=== PATIENT | female | born 1965 | race Caucasian/White ===

== ENCOUNTER 2021-06-28 14:30 | Outpatient (RCR) | payer BC, SELFPAY | END 2021-08-04 11:15 | disposition home or self-care (01) | LOC: ANHDMC 14:30 | PROVIDERS: PCP Physician Assistant; Visit Provider Physician Assistant | DX: E10.65 Type 1 diabetes mellitus with hyperglycemia (principal); Z71.89 Other specified counseling | CPT/HCPCS: 99199; G0108; G0109 ==

== ENCOUNTER 2021-11-03 00:50 | Day surgery (SDC) | payer BC, SELFPAY ==
[2021-10-25 13:50] VITALS: BMI 26.6
--- NOTE | 2021-10-25 14:02 | SUR.PREOP ---
Addendum entered by Kusum Raya RN 10/26/21 10:01: PT WAS INSTRUCTED TO STOP ASPIRIN 7 DAYS PRIOR TO SURGERY PER DR. NICOLE'S ORDERS. Original Note: Report to the Outpatient Waiting Room, entrance under the green pavilion located off [facility], at time 0600 on date __11/03/21 . OR Time: _0730 - You and your visitor will be asked a series of questions to screen for COVID 19 for your protection. - A mask is required within the hospital. Preoperative COVID Testing Requirements: No COVID Test needed if: (proof is required; if not received patient will have Rapid Test prior to entry) - Patient has received COVID Vaccine at least 14 days prior to procedure date or - Patient has positive COVID test result within last 90 days of surgery date. COVID Test needed if above criteria is not met If not COVID vaccinated a COVID test must be conducted within 72 hours of surgery and patient is asked to isolate self from time of testing until procedure. You will go to the [employer] [facility] for your COVID testing. The [employer] [facility] site is located at the corner of [address] [facility]. You will only be called if COVID results are positive and your surgeon may reschedule your elective surgery date. Patients may have clear liquids (water, carbonated beverages, clear teas, apple juice) until 3 hours prior to surgery with a maximum of 20 ounces. - No food from midnight until time of surgery - Infants may have breast milk until 4 hours before surgery, infant formula 6 hours prior to surgery. - Children will be allowed to drink immediately following surgery. If applicable, please bring a bottle or sippy cup to assist with drinking. Juice, water, soda, and popsicles are readily available. For infants on formula, please bring formula the day of surgery. Pacifiers are allowed. Take the following medications with a SIP of water the morning of surgery: __metoprolol,levothyroxine Medications to discontinue per physician n/a Date to take last dose n/a Please no make-up, nail mauritian, hairspray, perfume, deodorant, or body powder the day of surgery. No jewelry (including any body piercings) or valuables the day of surgery, leave them at home. Please take a shower or bath the night before, or the morning of, surgery with an antibacterial soap. Wear comfortable, loose fitting clothing. Children are encouraged to wear pajamas. - Jewelry must be removed prior to entering the operating room. Rings and piercings that are not removed may be cut off. - The hospital will not accept responsibility for valuables. - Please leave all valuables, including medications, at home the day of surgery. If you are going home after surgery, a licensed regional [employer] company driver must drive you home. - NO public transportation without another adult. - We recommend that an adult stay with you for 24 hours following discharge. - We also recommend that you do not drive, make important decision, drink alcoholic beverages, or take any drugs that were not prescribed by your health care provider for at least 24 hours after your discharge time. For Pediatric surgeries, we recommend two adults accompany the child home (only one inside the building at this time). One visitor will be allowed to accompany the patient into the hospital. Patients visitor will be instructed to remain with patient at all times or leave the building. We will allow the visitor to come back to the postoperative area when patient is ready. Follow any additional instructions given to you from your surgeon. Telephone instructions given to can swift and asked if any additional questions and then verbalized understanding. Patient advised to call surgeon office or pre surgery nurse liaison [phone] if any additional questions.
--- NOTE | 2021-11-02 05:02 | PM.IMHP ---
H&P: HPI History of Present Illness Date/Time: 11/02/21 05:02 56 yo mixed incontinence. Treatment of ROBIN with sling Chief Complaint: ROBIN Review of Systems Review of Systems: All systems reviewed & are unremarkable except as noted in HPI and below PMFSH Family History Family History Other Depression Diabetes mellitus Family history of alcoholism Family history of arthritis Family history of chronic obstructive pulmonary disease Family history of glaucoma Family history of hearing loss Family history of lung disease Family history of obesity Family history of osteoporosis Social History Social History Smoking status: Former smoker Tobacco type: cigarettes Smoking end date: 07/29/16 Additional smoking assessment comments: 1 ppd x 35 years Alcohol intake: current Substance use type: marijuana Other substance usage details: smoking marijuana daily Living arrangements: with family Spiritual care concerns: No Meds Home Medications and Allergies Home Medications Medication Instructions Recorded Confirmed Type acetaminophen-codeine 1 tablet PO PRN 10/25/21 10/25/21 History acyclovir 400 mg PO PRN 10/25/21 10/25/21 History aspirin [Adult Aspirin] 81 mg PO DAILY 10/25/21 10/25/21 History cyclobenzaprine 5 mg PO PRN 10/25/21 10/25/21 History furosemide 40 mg PO DAILY 10/25/21 10/25/21 History insulin admin supplies [InPen (for 10/25/21 10/25/21 History Novolog or Fiasp)] insulin aspart U-100 SUBCUT 10/25/21 History insulin degludec [Tresiba 14 unit SUBCUT HS 10/25/21 10/25/21 History FlexTouch U-100] levothyroxine 137 mcg PO DAILY 10/25/21 10/25/21 History meloxicam 15 mg PO DAILY 10/25/21 10/25/21 History metoprolol tartrate 25 mg PO DAILY 10/25/21 10/25/21 History ondansetron 4 mg PO PRN 10/25/21 10/25/21 History oxybutynin chloride 10 mg PO DAILY 10/25/21 10/25/21 History pravastatin 80 mg PO DAILY 10/25/21 10/25/21 History trazodone 100 mg PO DAILY 10/25/21 10/25/21 History Allergies Allergy/AdvReac Type Severity Reaction Status Date / Time [id number]-EvF Reductase Allergy Intermediate Muscle Pain Verified 10/25/21 13:07 Inhibitor Exam Narrative: NAD A+O x3 Urethral mobilty Assessment and Plan Assessment and plan (1) ROBIN (stress urinary incontinence, female): Code(s): N39.3 - Stress incontinence (female) (male) Status: Acute Assessment and Plan: urethral sling. Understands will not help OAB
[2021-11-03] MEDS: LACTATED RINGERS 1,000 ML 30 ML IV CONT (06:50)
[2021-11-03 07:00] VITALS: BP 144/76; PULSE 75; RESP 16; TEMP 36.8; O2SAT 97
--- NOTE | 2021-11-03 07:06 | WPDANESEPPF ---
Anes - Initial Pre Proc Eval Procedure: Operation Date: 11/03/21 07:30 Proposed Procedures p Urethral Sling - Efra Mckenzie MD Date/Time: 11/03/21 07:06 Surgeon: Efra Mckenzie MD Pre Op Diagnosis: stress incontinence Patient Data Age: 56 Gender: F Height: 1.68 m Weight: 75 kg Allergies Allergy/AdvReac Type Severity Reaction Status Date / Time Lgucylb-HTI-MdJ Reductase Allergy Intermediate Muscle Pain Verified 10/25/21 13:07 Inhibitor Home Medications Medication Instructions Recorded Confirmed Type acetaminophen-codeine 1 tablet PO PRN 10/25/21 10/25/21 History acyclovir 400 mg PO PRN 10/25/21 10/25/21 History aspirin [Adult Aspirin] 81 mg PO DAILY 10/25/21 10/25/21 History cyclobenzaprine 5 mg PO PRN 10/25/21 10/25/21 History furosemide 40 mg PO DAILY 10/25/21 10/25/21 History insulin admin supplies [InPen (for 10/25/21 10/25/21 History Novolog or Fiasp)] insulin aspart U-100 SUBCUT 10/25/21 History insulin degludec [Tresiba 14 unit SUBCUT HS 10/25/21 10/25/21 History FlexTouch U-100] levothyroxine 137 mcg PO DAILY 10/25/21 10/25/21 History meloxicam 15 mg PO DAILY 10/25/21 10/25/21 History metoprolol tartrate 25 mg PO DAILY 10/25/21 10/25/21 History ondansetron 4 mg PO PRN 10/25/21 10/25/21 History oxybutynin chloride 10 mg PO DAILY 10/25/21 10/25/21 History pravastatin 80 mg PO DAILY 10/25/21 10/25/21 History trazodone 100 mg PO DAILY 10/25/21 10/25/21 History Patient hx anesthesia problems: post op nausea/vomiting Family hx anesthesia problems: none Results Review: All pre-operative results and documents have been reviewed as part of the pre-operative evaluation. [facility] Past Medical History Medical History CAD (coronary artery disease) Hyperlipidemia Hypertension Hypothyroid Smoker Surgical History Surgical History Stented coronary artery Family History Family History Other Depression Diabetes mellitus Family history of alcoholism Family history of arthritis Family history of chronic obstructive pulmonary disease Family history of glaucoma Family history of hearing loss Family history of lung disease Family history of obesity Family history of osteoporosis Social History Social History Smoking status: Former smoker Tobacco type: cigarettes Smoking end date: 07/29/16 Additional smoking assessment comments: 1 ppd x 35 years Alcohol intake: current Substance use type: marijuana Other substance usage details: smoking marijuana daily Living arrangements: with family Spiritual care concerns: No Anes - Eval Final PreProcedure Day of Procedure 11/03/21 07:06 Patient weight: overweight Heart: regular rate and rhythm Lungs: decreased breath sounds Airway: Mallampati scale class II Neurological: alert and oriented Last oral intake: >/= 8 hours ASA classification: III Emergent: no Anesthetic plan: proceed Anesthesia type and monitoring: general LMA and standard monitoring Results Review: All pre-operative results and documents have been reviewed as part of the pre-operative evaluation. Informed Consent: The patient's anesthetic plan and its attendant risks and benefits were discussed with the patient/family/POA. Questions were solicited and answers provided to the satisfaction of the patient/family/POA.
[2021-11-03 07:13] LABS: Glucose Point of Care 362 mg/dl (65-105)
[2021-11-03 07:13] LABS: Glucose Point of Care 357 mg/dl (65-105)
--- NOTE | 2021-11-03 07:15 | WPDHPUPDATE1 ---
History and Physical Update Update Date/Time: 11/03/21 07:15 History and Physical has been reviewed, including an updated exam of the patient. There are NO changes in the patient's condition. Risks, benefits, and alternatives have been discussed and questions answered. Patient agrees to proceed with procedure.
[2021-11-03] MEDS: SCOPOLAMINE 1.5 MG PATCH TRANSDERM (07:18)
[2021-11-03] MEDS: INSULIN HUMAN REGULAR (*BKC) 100 UNITS/ML 10 UNITS SUB-Q (07:27)
[2021-11-03] MEDS: ceFAZolin 2 GM/D5W 50 ML 2 GM/50 ML BAG IVPB (07:32)
[2021-11-03 08:13] VITALS: BP 125/71; PULSE 74; RESP 12; O2SAT 91
--- NOTE | 2021-11-03 08:15 | W.PM.PROC2 ---
Procedure Note - Detailed Date of Procedure 11/03/21 Pre-op Diagnosis stress incontinence, perineal lesion Post-op Diagnosis Same Procedure Performed mid urethral sling cystoscopy Biopsy of perineal lesion Surgeon Efra Mckenzie MD Anesthesia MAC Indications This is a female with confirm stress urinary incontinence. She desires surgical correction. She understands the risks of bleeding, infection, injury to the urinary tract, vaginal mesh extrusion, urinary tract mesh erosion, obstructive voiding requiring a secondary procedure, hip and leg pain, dyspareunia, inability to improve overactive bladder symptoms. She agrees to proceed. She has urge incontinence as well. She understands this will not help her urge symptoms Description of Procedure She was correctly identified. Informed consent obtained. She was brought the operating room. She was given appropriate anesthesia. She was given appropriate perioperative antibiotics. A time-out performed. I marked out the site of the inner thigh incisions. I anesthetized the skin and made those incisions. I anesthetized the anterior vaginal wall over the mid urethra. I made a 1 cm incision. I dissected out laterally taking great care not to injure the refilled vaginal wall. I passed the helical trocars. First on the left. Then on the right. I did this from the thigh incision towards the vaginal incision. The sling was connected to the trocars and brought out through the thigh incision. I tensioned the sling appropriately. I cut and the plastic sheaths. I then closed the incision with 2 0 Vicryl. On cystoscopy there is no tumors or surgical artifact. There was no surgical artifact in the urethra. I cut the excess sling material. Close incisions with glue. She was awakened and transferred to the PACU in stable condition. Examination revealed a darkened area of tissue on the perineum. I decided to biopsy this area. I anesthetized the area. I did excisional biopsy. I closed the mucosa with a 4-0 Vicryl suture. Implants Urethral sling Estimated Blood Loss 20 Drains No Packing No Pathology None sent Complications No immediate complications Condition Stable Disposition PACU
[2021-11-03 08:18] VITALS: O2SAT 93
[2021-11-03 08:19] LABS: Glucose Point of Care 354 mg/dl (65-105)
[2021-11-03 08:40] VITALS: BP 170/90; PULSE 72; RESP 16; O2SAT 93
== END 2021-11-03 08:54 | disposition home or self-care (01) ==
PROVIDERS: PCP Physician Assistant; Visit Provider Urology
PROC: (CPT 57288; principal; 2021-11-03 07:30)
DX: N39.3 Stress incontinence (female) (male) (principal); L98.8 Other specified disorders of the skin and subcutaneous tissue; I10 Essential (primary) hypertension; E78.5 Hyperlipidemia, unspecified; E03.9 Hypothyroidism, unspecified; I25.10 Atherosclerotic heart disease of native coronary artery without angina pectoris; Z95.5 Presence of coronary angioplasty implant and graft; F12.90 Cannabis use, unspecified, uncomplicated; Z87.891 Personal history of nicotine dependence; Z79.4 Long term (current) use of insulin; Z79.82 Long term (current) use of aspirin
CPT/HCPCS: 57288; 11106; 82948; 88304; 88305; A9270; C1771; J0690; J1815; J2001; J2250; J2704; J3010; J7120

== ENCOUNTER 2022-10-04 13:12 | Outpatient (CLI) | payer BC, SELFPAY ==
--- NOTE | ~2022-10-04 | XR_ITS ---
XR foot RT min 3V DATE: 10/04/2022 13:29 INDICATION: Lateral right foot pain. Lateral foot injury by a rock 3 weeks ago TECHNIQUE: 4 views COMPARISON: None FINDINGS: Transverse nondisplaced recent metaphyseal fracture of the proximal phalanx of the fifth to e. Diffuse osteopenia. No other fracture or dislocation is detected. Anterior and posterior tibial artery calcifications. IMPRESSION: Nondisplaced transverse metaphyseal fracture proximal phalanx of fifth digit Osteopenia Reviewed, dictated and finalized at location [facility]. [facility] IMPRESSION: Nondisplaced transverse metaphyseal fracture proximal phalanx of fi fth digit Osteopenia
== END 2022-10-04 13:13 | disposition home or self-care (01) ==
LOC: CHSIMG 13:15
PROVIDERS: PCP Physician Assistant; Visit Provider Physician Assistant
DX: M79.671 Pain in right foot (principal); S92.514A Nondisplaced fracture of proximal phalanx of right lesser toe(s), initial encounter for closed fracture; M85.871 Other specified disorders of bone density and structure, right ankle and foot
CPT/HCPCS: 73630